=== PATIENT | male | born 1955 | race Caucasian/White ===

== ENCOUNTER → 2017-11-24 08:14 | Outpatient (CLI) | payer OTHER, SELFPAY ==
[2017-11-24 09:06] LABS: Hematocrit 42.5 % (41-53); Hemoglobin 14.9 g/dL (13.5-17.5); Mean Corpuscular Hemoglobin 30.7 PG (26-34); Mean Corpuscular Volume 87.6 fL (80-100); Platelet Count 227 X10^3/uL (150-400); Red Blood Cell Count 4.85 X10^6/uL (4.5-5.9); Red Cell Distribution Width 13.2 % (11.6-14.8); White Blood Cell Count 4.3 X10^3/uL (4.5-11.0)
[2017-11-24 09:47] LABS: Erythrocyte Sedimentation Rate 10 MM/HR (0-15)
[2017-11-24 10:23] LABS: Neutrophils Absolute Manual 2580 /uL (3000-5900); Total Cells Counted 100
== END ==
PROVIDERS: Family Provider Family Medicine; PCP Family Medicine; Visit Provider Physician Assistant
DX: R10.9 Unspecified abdominal pain (principal)
CPT/HCPCS: 36415; 85025; 85651

== ENCOUNTER → 2018-01-20 08:41 | Outpatient (CLI) | payer OTHER, SELFPAY ==
[2018-01-20 10:42] LABS: Alanine Aminotransferase 27 IU/L (21-72); Albumin 4.7 g/dL (3.5-5.0); Albumin Globulin Ratio 1.8 (1.0-2.8); Alkaline Phosphatase 51 U/L (38-126); Aspartate Aminotransferase 18 IU/L (17-59); BUN Creatinine Ratio 27.3 (6-22); Bilirubin Total 0.7 mg/dL (0.2-1.3); Blood Urea Nitrogen 30 mg/dL (9-20); Calcium 10.1 mg/dL (8.4-10.2); Carbon Dioxide 25 mmol/L (22-32); Chloride 101 mmol/L (98-107); Estimated Glomerular Filt Rate > 60.0 mL/min (>60); Globulin 2.6 g/dL (1.7-4.1); Glucose 90 mg/dL (80-110); HEMOLYSIS < 15 (0-50); Lipase 335 U/L (23-300); Potassium 4.2 mmol/L (3.4-5.1); Sodium 142 mmol/L (137-145); Total Protein 7.3 g/dL (6.3-8.2)
== END ==
PROVIDERS: PCP Family Medicine; Visit Provider Family Medicine
DX: I10 Essential (primary) hypertension (principal); K62.5 Hemorrhage of anus and rectum
CPT/HCPCS: 36415; 80053; 83690

== ENCOUNTER → 2018-10-07 10:42 | Outpatient (CLI) | payer OTHER, SELFPAY ==
[2018-10-07 12:47] LABS: Alanine Aminotransferase 40 IU/L (21-72); Albumin 4.9 g/dL (3.5-5.0); Albumin Globulin Ratio 1.8 (1.0-2.8); Alkaline Phosphatase 64 U/L (38-126); Aspartate Aminotransferase 27 IU/L (17-59); BUN Creatinine Ratio 17.7 (6-22); Bilirubin Total 0.7 mg/dL (0.2-1.3); Blood Urea Nitrogen 23 mg/dL (9-20); Calcium 9.5 mg/dL (8.4-10.2); Carbon Dioxide 24 mmol/L (22-32); Chloride 103 mmol/L (98-107); Cholesterol 154 mg/dL (140-199); Estimated Glomerular Filt Rate 55.6 mL/min (>60); Globulin 2.8 g/dL (1.7-4.1); Glucose 104 mg/dL (80-110); HDL Cholesterol 53 mg/dL (40-60); HEMOLYSIS < 15 (0-50); LDL Cholesterol Calculated 85 mg/dL (<100); Potassium 3.5 mmol/L (3.4-5.1); Sodium 139 mmol/L (137-145); Total Protein 7.7 g/dL (6.3-8.2); Triglycerides 78 mg/dL (35-150); Uric Acid 7.1 mg/dL (3.5-8.5)
== END ==
PROVIDERS: PCP Family Medicine; Visit Provider Family Medicine
DX: I10 Essential (primary) hypertension (principal); M15.9 Polyosteoarthritis, unspecified; R73.03 Prediabetes
CPT/HCPCS: 36415; 80053; 80061; 84550

== ENCOUNTER → 2019-01-18 09:56 | Outpatient (CLI) | payer OTHER, SELFPAY ==
--- NOTE | 2019-01-18 | DI.US.S_ITS ---
PROCEDURE: US ABD AORTA ANEURYSM SCREEN INDICATIONS: HISTORY SMOKING TECHNIQUE: Real time scanning was performed of the aorta and iliac arteries, with image documentation. COMPARISON: None. FINDINGS: Aorta: Proximal aortic diameter measures 2.2 cm. Mid-aorta measures 1.5 cm. Distal aortic diameter is 1.4 cm. Iliac arteries: Right common iliac artery measures 0.8 cm. Left common iliac artery measures 0.8 cm. IMPRESSION: Normal aortic ultrasound. Dictated by: Jairon Zepeda M.D. on 01/18/2019 at 14:07 Approved by: Jairon Zepeda M.D. on 01/18/2019 at 14:09
== END ==
PROVIDERS: PCP Family Medicine; Visit Provider Nurse Practitioner Family
DX: Z13.6 Encounter for screening for cardiovascular disorders (principal); Z87.891 Personal history of nicotine dependence
CPT/HCPCS: 76706

== ENCOUNTER → 2021-04-20 08:11 | Outpatient (CLI) | payer OTHER, SELFPAY ==
[2021-04-20 09:32] LABS: Add Manual Diff / Slide Review NO; Basophils Absolute Auto 0 /uL (0-100); Basophils Percent Auto 0.4 % (0-2); Eosinophils Absolute Auto 100 /uL (0-450); Eosinophils Percent Auto 1.9 % (2-4); Hematocrit 40.1 % (41-53); Hemoglobin 14.1 g/dL (13.5-17.5); Lymphocytes Absolute Auto 1400 /uL (1100-4500); Lymphocytes Percent Auto 34.7 % (25-40); Mean Corpuscular HGB Conc 35.2 % (30-36); Mean Corpuscular Hemoglobin 29.8 PG (26-34); Mean Corpuscular Volume 84.7 fL (80-100); Monocytes Absolute Auto 300 /uL (0-900); Monocytes Percent Auto 7.7 % (3-14); Neutrophils Absolute Auto 2200 /uL (1500-7000); Neutrophils Percent Auto 55.3 % (50-75); Platelet Count 224 X10^3/uL (150-400); Red Blood Cell Count 4.74 X10^6/uL (4.5-5.9); Red Cell Distribution Width 12.7 % (11.6-14.8); White Blood Cell Count 3.9 X10^3/uL (4.5-11.0)
[2021-04-20 10:00] LABS: Alanine Aminotransferase 23 IU/L (<50); Albumin 4.3 g/dL (3.5-5.0); Albumin Globulin Ratio 1.7 (1.0-2.8); Alkaline Phosphatase 49 U/L (38-126); Aspartate Aminotransferase 21 IU/L (17-59); BUN Creatinine Ratio 21.7 (6-22); Bilirubin Total 0.6 mg/dL (0.2-1.3); Blood Urea Nitrogen 28 mg/dL (9-20); Calcium 9.3 mg/dL (8.4-10.2); Carbon Dioxide 22 mmol/L (22-32); Chloride 104 mmol/L (98-107); Cholesterol 155 mg/dL (140-199); Estimated Glomerular Filt Rate 55.6 mL/min (>60); Globulin 2.5 g/dL (1.7-4.1); Glucose 107 mg/dL (80-110); HDL Cholesterol 51 mg/dL (40-60); HEMOLYSIS < 15 (0-50); LDL Cholesterol Calculated 86 mg/dL (<100); Potassium 3.9 mmol/L (3.4-5.1); Sodium 139 mmol/L (137-145); Total Protein 6.8 g/dL (6.3-8.2); Triglycerides 90 mg/dL (35-150)
[2021-04-20 10:29] LABS: Prostate Specific Antigen Scrn 1.36 ng/mL (0.1-4.0)
[2021-04-20 10:35] LABS: Thyroid Stimulating Hormone 1.26 uIU/mL (0.47-4.68)
[2021-04-20 16:18] LABS: Hemoglobin A1C% w Est Avg Glu 5.4 % (4.0-6.0)
== END ==
PROVIDERS: PCP Internal Medicine; Referring Provider Internal Medicine; Visit Provider Internal Medicine
DX: Z00.00 Encounter for general adult medical examination without abnormal findings (principal); D12.6 Benign neoplasm of colon, unspecified; I10 Essential (primary) hypertension; Z85.828 Personal history of other malignant neoplasm of skin; R73.03 Prediabetes; Z87.891 Personal history of nicotine dependence; Z12.5 Encounter for screening for malignant neoplasm of prostate
CPT/HCPCS: 36415; 80053; 80061; 83036; 84443; 85025; G0103

== ENCOUNTER → 2022-03-27 09:42 | Outpatient (CLI) | payer OTHER, SELFPAY ==
[2022-03-27 12:12] LABS: COVID19 -Nasal RAPID Negative (Negative)
== END ==
PROVIDERS: PCP Internal Medicine; Visit Provider Surgery
DX: Z20.822 Contact with and (suspected) exposure to COVID-19 (principal); Z01.812 Encounter for preprocedural laboratory examination
CPT/HCPCS: 87635; C9803

== ENCOUNTER 2022-03-28 07:28 | Day surgery (SDC) | payer OTHER, SELFPAY ==
--- NOTE | 2022-03-28 | PATH_ITS ---
[facility] Accession Number: [id number] . 01 Material submitted: . PART A: colon - TRANSVERSE COLON POLYP PART B: sigmoid colon - SIGMOID COLON POLYP . 01 Diagnosis: A. Transverse Colon Polyp, Biopsy: Tubular adenoma. . B. Sigmoid Colon Polyp, Biopsy: Colonic mucosa with focal mucosal hyperplasia. Negative for dysplasia or malignancy. [facility] 04/01/2022 1523 Local . 01 Electronically signed: . Esteban Gallagher MD, PhD, Pathologist NPI- [id number] . 01 Gross description: . Part A: TRANSVERSE COLON POLYP: Received in formalin is 1 fragment(s) of craig, soft tissue measuring 0.3 x 0.1 x 0.1 cm submitted entirely in 1 cassette(s) Part B: SIGMOID COLON POLYP: Received in formalin is 1 fragment(s) of craig, soft tissue measuring 0.6 x 0.2 x 0.1 cm submitted entirely in 1 cassette(s) /CPE 03/30/2022 0610 Local . 01 Pathologist provided ICD-10: D12.3 . 01 CPT . 255085, 786831 Specimen Comment: A courtesy copy of this report has been sent to [phone] Performed at: 01 [facility] [address] [place] [address] [address] [facility] [place] [facility] [place], [place], [place] [id number] MD Stephen Leigh MD Phone: [phone]
[2022-03-28 07:37] VITALS: BP 145/83; PULSE 97; RESP 16; TEMP 36.5; O2SAT 96; BMI 25.8
[2022-03-28] MEDS: LACTATED RINGERS 1,000 ML 84 ML IV (07:56)
--- NOTE | 2022-03-28 08:34 | P.HP_ITS ---
History of Present Illness History of Present Illness Date Patient Seen: 03/28/22 Time Patient Seen: 08:35 Chief complaint: Colonoscopy Narrative: Alex is a 66-year-old man who had a colonoscopy about 5 years ago with findings of several small tubular adenomas. He has no known family history of colon cancer. Patient History Medical History (Updated 03/28/22 @ 08:35 by Junior Rodriguez MD) Allergic conjunctivitis Colon polyps (2009) Gout Hyperlipidemia Hypertension Macular degeneration, age related Skin cancer (~2009) Tinea cruris Vitelliform macular dystrophy Surgical History (Updated 01/19/18 @ 15:51 by Reshma Vieira) Anesthesia History of surgical removal of skin lesion (~2009) Status post colonoscopy (10/11/10) Family & Social History Family History (Updated 01/19/18 @ 15:51 by Reshma Vieira) Father Bone cancer Mother Breast cancer Social History: household members spouse Tobacco & Substance use: Smoking Status Former smoker alcohol intake current alcohol intake frequency a few times a week Substance Use Type marijuana Meds Home Medications and Allergies Home Medications Medication Instructions Recorded Confirmed Type losartan 100 mg tablet (Cozaar) 100 mg PO QDAY #90 tabs 08/15/17 03/28/22 Rx simvastatin 20 mg tablet 20 mg PO QDAY #90 tabs 08/15/17 03/28/22 Rx sildenafil (pulm.hypertension) 20 100 mg PO .COMPLEX #30 tabs 04/07/18 03/28/22 Rx mg tablet amlodipine 10 mg tablet (Norvasc) 10 mg PO QDAY #90 tabs 09/15/18 03/28/22 Rx chlorthalidone 25 mg tablet 12.5 mg PO QDAY #30 tabs 11/11/18 03/28/22 Rx Allergies Allergy/AdvReac Type Severity Reaction Status Date / Time No Known Drug Allergies Allergy Verified 03/28/22 07:57 Exam Vital Signs (past 8 hours): - 03/28/22 07:37 Temperature 97.7 F Pulse Rate 97 H Respiratory Rate 16 Blood Pressure 145/83 H Pulse Oximetry 96 Oxygen Delivery Method Room Air Oxygen Delivery Method Room Air Const General: healthy appearing Resp Effort & Inspection: normal respiratory effort Assessment & Plan Assessment and plan (1) Personal history of colonic polyps: Status: Acute Plan 66-year-old man with a personal history of colon polyps. We reviewed the risks and benefits of colonoscopy for colon cancer screening and he would like to p kayden. Time Spent With Patient Critical Care time: I spent a total of [] minutes of critical care time on this patient's care today; this time is exclusive of procedural time.
[2022-03-28] MEDS: MIDAZOLAM 5 MG/5 ML VIAL 7 MG IV (09:03)
[2022-03-28] MEDS: fentaNYL 100 MCG/2 ML INJ 150 MCG IV (09:04)
--- NOTE | 2022-03-28 09:12 | PM.OP.COLON ---
Operative Date/Time/Diagnoses Date of procedure: 03/28/22 Time of procedure: 09:12 Pre-op diagnosis: History of polyps Post-op diagnosis: same Procedure & Clinicians Study performed: Colonoscopy Same procedure as scheduled: Yes Surgeon: Junior Rodriguez Procedure Notes Procedure in detail: Surgeon: Junior Rodriguez MD Procedure: The patient was brought to the endoscopy suite, placed in left lateral decubitus position. The patient was connected to monitoring devices. A time-out was performed. Sedation was administered. Once the patient was adequately sedated, a digital rectal exam was performed and was normal. The scope was then inserted and advanced to the cecum where the appendiceal orifice was identified and photographed. The scope was then slowly withdrawn over greater than 6 minutes. The mucosa was thoroughly inspected. There was a 4 mm polyp in the distal transverse colon removed with a cold snare. There were 2 4 mm polyps in the distal sigmoid colon removed with cold snare. There was scattered sigmoid diverticulosis. The scope was retroflexed in the rectum. There were some mild internal hemorrhoids. The scope was straightened and removed. The patient was awakened and brought to recovery. Versed: 7 mg Fentanyl: 150 mcg EBL: 10 mL Findings: Scattered sigmoid diverticula, 4 mm distal transverse colon polyp and 2 4 mm distal sigmoid colon polyps. Scope withdrawal time: 14 Sedation minutes: 28 Post-procedure Recommendations: Will call with biopsy results Disposition: PACU
[2022-03-28 09:18] VITALS: BP 100/66; PULSE 68; RESP 19; TEMP 36.1; O2SAT 95
[2022-03-28 09:23] VITALS: BP 112/71; PULSE 78; RESP 21; O2SAT 96
[2022-03-28 09:40] VITALS: BP 119/72; PULSE 79; RESP 17; TEMP 36.6; O2SAT 98
== END 2022-03-28 09:42 | disposition home or self-care (01) ==
PROVIDERS: PCP Internal Medicine; Referring Provider Surgery; Visit Provider Surgery
PROC: 0DJD8ZZ Inspection of Lower Intestinal Tract, Via Natural or Artificial Opening Endoscopic (ICD-10-PCS; CPT 45378; principal; 2022-03-28 08:30)
DX: Z12.11 Encounter for screening for malignant neoplasm of colon (principal); Z85.038 Personal history of other malignant neoplasm of large intestine; K57.30 Diverticulosis of large intestine without perforation or abscess without bleeding; D12.3 Benign neoplasm of transverse colon
CPT/HCPCS: 45385; 99152; 99153; J2250; J3010